=== PATIENT | male | born 1955 | race Caucasian/White ===

== ENCOUNTER → 2019-09-23 11:13 | Outpatient (CLI) | payer OTHER, SELFPAY ==
[2019-09-23 12:33] LABS: Blood Urea Nitrogen 18 mg/dL (9-20); Calcium 9.4 mg/dL (8.4-10.2); Carbon Dioxide 29 mmol/L (22-32); Chloride 104 mmol/L (98-107); Cholesterol 291 mg/dL (140-199); Estimated Glomerular Filt Rate > 60.0 mL/min (>60); Glucose 134 mg/dL (80-110); HDL Cholesterol 38 mg/dL (40-60); HEMOLYSIS < 15 (0-50); LDL Cholesterol Calculated 212 mg/dL (<100); Potassium 4.3 mmol/L (3.4-5.1); Sodium 141 mmol/L (137-145); Triglycerides 206 mg/dL (35-150)
[2019-09-23 13:05] LABS: Prostate Specific Antigen Scrn 3.04 ng/mL (0.1-4.0)
[2019-09-23 15:32] LABS: Vitamin D 25 Hydroxy (D3) 15.7 ng/mL (30.0-100.0)
== END ==
PROVIDERS: Visit Provider Student in an Organized Health Care Education/Training Program
DX: Z12.5 Encounter for screening for malignant neoplasm of prostate (principal); E78.2 Mixed hyperlipidemia; Z79.1 Long term (current) use of non-steroidal anti-inflammatories (NSAID); E55.9 Vitamin D deficiency, unspecified
CPT/HCPCS: 36415; 80048; 80061; 82306; G0103

== ENCOUNTER → 2020-04-26 13:45 | Outpatient (CLI) | payer OTHER, SELFPAY ==
[2020-04-26 15:59] LABS: Cholesterol 158 mg/dL (140-199); HDL Cholesterol 34 mg/dL (40-60); LDL Cholesterol Calculated 102 mg/dL (<100); Triglycerides 110 mg/dL (35-150)
[2020-04-26 16:18] LABS: Vitamin D 25 Hydroxy (D3) 33.2 ng/mL (30.0-100.0)
== END ==
PROVIDERS: PCP Student in an Organized Health Care Education/Training Program; Referring Provider Student in an Organized Health Care Education/Training Program; Visit Provider Student in an Organized Health Care Education/Training Program
DX: E78.49 Other hyperlipidemia (principal); E55.9 Vitamin D deficiency, unspecified
CPT/HCPCS: 36415; 80061; 82306

== ENCOUNTER → 2020-10-19 10:54 | Outpatient (CLI) | payer OTHER, SELFPAY ==
[2020-10-19 13:03] LABS: Prostate Specific Antigen Scrn 2.36 ng/mL (0.1-4.0)
== END ==
PROVIDERS: PCP Student in an Organized Health Care Education/Training Program; Referring Provider Student in an Organized Health Care Education/Training Program; Visit Provider Student in an Organized Health Care Education/Training Program
DX: Z12.5 Encounter for screening for malignant neoplasm of prostate (principal)
CPT/HCPCS: 36415; G0103

== ENCOUNTER → 2021-04-30 14:34 | Outpatient (CLI) | payer OTHER, SELFPAY ==
--- NOTE | 2021-04-30 14:35 | DI.RAD.S_ITS ---
PROCEDURE: XR KNEE LT 3V INDICATIONS: Knee pain TECHNIQUE: 3 views of the knee were acquired. COMPARISON: None. FINDINGS: Bones: No fractures or dislocations. No suspicious bony lesions. Mild tricompartment osteoarthritis. Soft tissues: No joint effusion. No suspicious soft tissue calcifications. IMPRESSION: Mild left knee tricompartmental osteoarthritis. Dictated by: Eva Ngo MD, PhD on 04/30/2021 at 17:00 Approved by: Eva Ngo MD, PhD on 04/30/2021 at 17:01
== END ==
PROVIDERS: PCP Student in an Organized Health Care Education/Training Program; Referring Provider Student in an Organized Health Care Education/Training Program; Visit Provider Student in an Organized Health Care Education/Training Program
DX: M25.562 Pain in left knee (principal); M17.12 Unilateral primary osteoarthritis, left knee
CPT/HCPCS: 73562

== ENCOUNTER → 2022-09-25 14:34 | Outpatient (CLI) | payer OTHER, SELFPAY ==
[2022-09-25 22:54] LABS: BUN Creatinine Ratio 12.9 (6-22); Blood Urea Nitrogen 13 mg/dL (9-20); Calcium 9.3 mg/dL (8.4-10.2); Carbon Dioxide 30 mmol/L (22-32); Chloride 102 mmol/L (98-107); Cholesterol 208 mg/dL (140-199); Estimated Glomerular Filt Rate > 60 mL/min (>60); Glucose 108 mg/dL (80-110); HDL Cholesterol 39 mg/dL (40-60); HEMOLYSIS < 15 (0-50); LDL Cholesterol Calculated 129 mg/dL (<100); Potassium 4.4 mmol/L (3.4-5.1); Sodium 140 mmol/L (137-145); Triglycerides 200 mg/dL (35-150)
[2022-09-25 23:23] LABS: Prostate Specific Antigen Scrn 2.99 ng/mL (0.1-4.0)
[2022-09-26 16:43] LABS: Hep C Virus Ab w/Reflex Quant NEGATIVE s/c (NEGATIVE)
== END ==
PROVIDERS: PCP Student in an Organized Health Care Education/Training Program; Referring Provider Student in an Organized Health Care Education/Training Program; Visit Provider Student in an Organized Health Care Education/Training Program
DX: I10 Essential (primary) hypertension (principal); Z12.5 Encounter for screening for malignant neoplasm of prostate; Z11.59 Encounter for screening for other viral diseases; E78.49 Other hyperlipidemia
CPT/HCPCS: 36415; 80048; 80061; 86803; G0103

== ENCOUNTER → 2023-01-14 11:16 | Outpatient (CLI) | payer OTHER, SELFPAY ==
[2023-01-14 12:30] LABS: Cholesterol 187 mg/dL (140-199); HDL Cholesterol 34 mg/dL (40-60); LDL Cholesterol Calculated 111 mg/dL (<100); Triglycerides 208 mg/dL (35-150); VLDL Cholesterol Calculated 42 mg/dL (2-30)
== END ==
PROVIDERS: PCP Student in an Organized Health Care Education/Training Program; Referring Provider Student in an Organized Health Care Education/Training Program; Visit Provider Student in an Organized Health Care Education/Training Program
DX: E78.49 Other hyperlipidemia (principal)
CPT/HCPCS: 36415; 80061

== ENCOUNTER 2023-07-22 10:44 | Day surgery (SDC) | payer OTHER, SELFPAY ==
--- NOTE | 2023-07-22 | PATH_ITS ---
[facility] Accession Number: [id number] No. of containers..03 Tissue . 01 Material submitted: . PART A: colon - SIGMOID PART B: colon - CECUM PART C: colon - TRANSVERSE . 01 Diagnosis: A- COLON, SIGMOID, BIOPSY: - CONSISTENT WITH TUBULAR ADENOMA. --- B- COLON, CECUM, BIOPSY: - CONSISTENT WITH TUBULOVILLOUS ADENOMA. --- C-COLON, TRANSVERSE, BIOPSY: - CONSISTENT WITH TUBULAR ADENOMA. TXN 07/25/2023 1021 Local . 01 Electronically signed: . Tawfeq MD Aaron, Pathologist NPI- [id number] . 01 Gross description: . Part A: SIGMOID: Received in formalin is 1 fragment(s) of vazquez, soft tissue measuring 0.3 x 0.2 x 0.1 cm submitted entirely in 1 cassette(s) Part B: CECUM: Received in formalin is multiple fragment(s) of vazquez, soft tissue measuring 1.5 x 0.5 x 0.3 cm in aggregate submitted entirely in 1 cassette(s) Part C: TRANSVERSE: Received in formalin is 1 fragment(s) of vazquez, soft tissue measuring 0.8 x 0.7 x 0.6 cm which is bisected and submitted entirely in 1 cassette(s) /AAY 07/24/2023 0252 Local . 01 Pathologist provided ICD-10: Z12.11 . 01 CPT . 171727, [id number], [id number] Specimen Comment: A courtesy copy of this report has been sent to [phone] Performed at: [facility] [address] [place] [address] [address] [facility] [place], [place], [place] [id number] MD Richard Toney MD Phone: [phone]
[2023-07-22 11:04] VITALS: BP 147/90; PULSE 87; RESP 16; TEMP 36.6; O2SAT 93; BMI 28.0
[2023-07-22] MEDS: LACTATED RINGERS 1,000 ML 150 ML IV (11:24)
--- NOTE | 2023-07-22 11:31 | PM.HP.1 ---
History of Present Illness History of Present Illness Date Patient Seen: 07/22/23 Time Patient Seen: 11:31 Chief complaint: Colonoscopy Narrative: 68-year-old man here for screening colonoscopy. Previously normal colonoscopy 18 years ago. No family history of intestinal malignancy in first-degree relatives. No abdominal concerns today including abdominal pain, unintentional weight loss, blood per rectum, anorexia. [facility] Medical History (Updated 05/30/23 @ 16:48 by Luis Cutler MD) Annual physical exam Cervical vertebral fusion Chicken pox Hordeolum Keratosis Measles Restless leg syndrome Tension headache Tinnitus Surgical History Anesthesia History of tonsillectomy (~1964) History of vasectomy (~1977) Spinal stenosis (~2015) Family History Father No problems noted. Mother Cancer Social History household members: spouse Smoking Status: Never smoker alcohol intake: current Meds Home Medications and Allergies Home Medications Medication Instructions Recorded Confirmed Type aspirin 81 mg tablet,delayed 81 mg PO DAILY 07/29/19 07/22/23 History release losartan 25 mg tablet 25 mg PO DAILY #90 tabs 09/25/22 07/22/23 Rx atorvastatin 20 mg tablet 80 mg PO BEDTIME #360 tabs 09/27/22 07/22/23 Rx sildenafil (pulm.hypertension) 20 20 mg PO ONCE #20 tabs 06/01/23 07/22/23 Rx mg tablet Allergies Allergy/AdvReac Type Severity Reaction Status Date / Time hydrocodone Allergy itchiness Verified 07/22/23 11:00 Exam Vital Signs (past 8 hours): - 07/22/23 11:04 Temperature 97.9 F Pulse Rate 87 Respiratory Rate 16 Blood Pressure 147/90 H Pulse Oximetry 93 Oxygen Delivery Method Room Air Oxygen Delivery Method Room Air Narrative Exam Narrative: General adult man alert oriented no acute distress Abdomen soft nontender nondistended Assessment & Plan Assessment & Plan narrative: The patient requires colorectal screening and colonoscopy is recommended. Technical details were discussed. Risks, benefits, alternatives explained. Risks including but not limited to myocardial infarction, aspiration, bleeding, pain, missed lesion, incomplete examination, need for further radiographic studies, colonic perforation, and need for major abdominal surgery were discussed. All questions were answered to their satisfaction, and they are in agreement with this plan.
--- NOTE | 2023-07-22 11:33 | PM.OP.COLON ---
Operative Date/Time/Diagnoses Date of procedure: 07/22/23 Time of procedure: 11:33 Pre-op diagnosis: Colorectal screening Post-op diagnosis: other (Colonic polyps x3) Procedure & Clinicians Study performed: Colonoscopy Same procedure as scheduled: Yes Indications: Colorectal screening Surgeon: Ravinder Martinez Procedure Notes Procedure in detail: The history and physical was performed/updated and the patient is ASA class is 2. The procedure was discussed in detail with the patient. Potential risks complications including infection, bleeding, missed diagnosis, perforation, need for surgery, and were explained. Their questions were answered and informed consent was obtained. Patient was brought to the procedure room and placed standard monitoring equipment. The patient's vital signs were monitored continuously throughout the entire procedure. Prior to starting time-out was performed. The patient was placed in the left lateral recumbent position. Procedural sedation was administered by anesthesia. Examination began with a thorough inspection of the perianal area there was no evidence of fissures, fistulae, external hemorrhoids or cutaneous malignancy. The colonoscopy scope was then placed into the anal canal and was advanced to the cecum, which was identified by the ileocecal valve, the appendiceal orifice and the confluence of the taenia. The scope was then slowly withdrawn examining colon thoroughly in all directions, irrigating it of any residual stool. Cecum-8 mm polyp removed with with cold snare Transverse-8 mm polyp removed with cold snare Sigmoid-3 mm polyp removed with Jumbo forceps The patient tolerated the procedure well. They will be discharged once criteria are met. The prep was of good/excellent quality. The withdrawl time was 8 minutes. Specimen(s): other (Sigmoid, transfers, cecal polyps) Impression: Colonic polyps x3 Post-procedure Plan for aftercare: Follow-up is dependent on pathology findings likely 3-5 years Disposition: same day surgery
[2023-07-22 11:54] VITALS: BP 170/87; PULSE 71; RESP 15; TEMP 36.4; O2SAT 93
[2023-07-22 11:59] VITALS: BP 150/88; PULSE 65; RESP 12; O2SAT 94
[2023-07-22 12:15] VITALS: BP 145/93; PULSE 69; RESP 15; TEMP 36.6; O2SAT 94
== END 2023-07-22 12:33 | disposition home or self-care (01) ==
PROVIDERS: PCP Pediatrics; Referring Provider Surgery; Visit Provider Surgery
PROC: 0DJD8ZZ Inspection of Lower Intestinal Tract, Via Natural or Artificial Opening Endoscopic (ICD-10-PCS; CPT 45378; principal; 2023-07-22 11:45)
DX: Z12.11 Encounter for screening for malignant neoplasm of colon (principal); K63.5 Polyp of colon
CPT/HCPCS: 45385; 45380; J2704

== ENCOUNTER → 2024-01-02 10:54 | Outpatient (CLI) | payer OTHER, SELFPAY ==
[2024-01-02 12:51] LABS: Add Manual Diff / Slide Review NO; Basophils Absolute Auto 0 /uL (0-100); Basophils Percent Auto 0.5 % (0-2); Eosinophils Absolute Auto 500 /uL (0-450); Eosinophils Percent Auto 4.7 % (2-4); Hematocrit 44.7 % (41-53); Hemoglobin 15.1 g/dL (13.5-17.5); Lymphocytes Absolute Auto 2900 /uL (1100-4500); Lymphocytes Percent Auto 29.6 % (25-40); Mean Corpuscular HGB Conc 33.8 % (30-36); Mean Corpuscular Hemoglobin 31.6 PG (26-34); Mean Corpuscular Volume 93.6 fL (80-100); Monocytes Absolute Auto 900 /uL (0-900); Monocytes Percent Auto 9.2 % (3-14); Neutrophils Absolute Auto 5500 /uL (1500-7000); Platelet Count 257 X10^3/uL (150-400); Red Blood Cell Count 4.77 X10^6/uL (4.5-5.9); Red Cell Distribution Width 13.9 % (11.6-14.8); White Blood Cell Count 9.8 X10^3/uL (4.5-11.0)
[2024-01-02 13:31] LABS: Alanine Aminotransferase 29 IU/L (<50); Albumin 3.7 g/dL (3.5-5.0); Albumin Globulin Ratio 1.4 (1.0-2.8); Alkaline Phosphatase 78 U/L (38-126); Aspartate Aminotransferase 21 IU/L (17-59); BUN Creatinine Ratio 13.4 (6-22); Bilirubin Total 0.4 mg/dL (0.2-1.3); Blood Urea Nitrogen 15 mg/dL (9-20); Calcium 9.1 mg/dL (8.4-10.2); Carbon Dioxide 32 mmol/L (22-32); Chloride 105 mmol/L (98-107); Estimated Glomerular Filt Rate > 60 mL/min (>60); Globulin 2.6 g/dL (1.7-4.1); Glucose 133 mg/dL (80-110); HEMOLYSIS < 15 (0-50); Potassium 5.1 mmol/L (3.4-5.1); Sodium 141 mmol/L (137-145); Total Protein 6.3 g/dL (6.3-8.2)
[2024-01-02 13:33] LABS: Cholesterol 166 mg/dL (140-199); HDL Cholesterol 37 mg/dL (40-60); LDL Cholesterol Calculated 106 mg/dL (<100); Triglycerides 117 mg/dL (35-150)
[2024-01-05 15:38] LABS: Appearance Urine UA CLEAR; Bilirubin Urine UA NEGATIVE (NEGATIVE); Color Urine UA YELLOW; Glucose Urine UA NEGATIVE (Negative); Ketones Urine UA NEGATIVE (NEGATIVE); Leukocyte Esterase Urine UA TRACE (NEGATIVE); Nitrite Urine UA NEGATIVE (Negative); Occult Blood Urine UA NEGATIVE (Negative); Protein Urine UA NEGATIVE (Negative); Specific Gravity Urine UA 1.015 (1.000-1.035); Urobilinogen Urine UA 0.2 E.U./dL (0.2)
[2024-01-05 15:44] LABS: Bacteria Urine Occasional (0-1); Culture Indicated Urine Specimen Cultured; RBC Urine 0-1/HPF (0-5/HPF); Squamous Epithelial Cell Urine 1-5 /HPF (0-5/HPF); Urine Volume 10mL (spun); WBC Urine 1-5/HPF (0-5/HPF)
== END ==
PROVIDERS: PCP Family Medicine; Referring Provider Pediatrics; Visit Provider Pediatrics
DX: E78.49 Other hyperlipidemia (principal); G62.9 Polyneuropathy, unspecified; Z00.00 Encounter for general adult medical examination without abnormal findings; L57.0 Actinic keratosis; G25.81 Restless legs syndrome; I10 Essential (primary) hypertension; Z79.899 Other long term (current) drug therapy; R10.9 Unspecified abdominal pain
CPT/HCPCS: 36415; 80053; 80061; 81001; 85025; 87086

== ENCOUNTER → 2024-01-16 11:41 | Outpatient (CLI) | payer OTHER, SELFPAY ==
--- NOTE | 2024-01-16 11:42 | DI.CT.S_ITS ---
PROCEDURE: CT KIDNEY URETER BLADDER (KUB) INDICATIONS: Kidney Stone; Right Flank Pain TECHNIQUE: Axial sections were acquired from the lung bases to the pubic symphysis. Coronal and sagittal reformats were performed. For radiation dose reduction, the following was used: automated exposure control, adjustment of mA and/or kV according to patient size. COMPARISON: None. FINDINGS: Image quality: Diagnostic. Lower Chest: Possible thickening at the lower esophagus. URINARY: Right Kidney: No stones or hydronephrosis. Right Ureter: No hydroureter. Left Kidney: No stones or hydronephrosis. Left Ureter: No hydroureter. Bladder: Normal wall thickness. No stones. ABDOMEN: Liver: No contour-deforming solid mass. Gallbladder: No radiopaque gallstones or wall thickening. Biliary ducts: No biliary dilation. Pancreas: No ductal dilation. Spleen: Size is within normal limits. Adrenal Glands: No adrenal nodules. Stomach and Bowel: Normal colonic caliber, without significant wall thickening. Normal appendix. Peritoneum: No abnormal intraperitoneal fluid. No free air. Ventral Wall: No hernia. Abdominal Nodes: No enlarged retroperitoneal or mesenteric lymph nodes. Vessels: Aorta and inferior vena cava are normal in size. Circumaortic left renal vein. PELVIS: Pelvic Organs: Prostatomegaly. Pelvic Nodes: Unremarkable. Miscellaneous: No inguinal hernias are seen. Bones: A few sclerotic foci which have the appearance of bone islands. No aggressive appearing lesion. IMPRESSION: 1. No kidney stones. No hydronephrosis. 2. Possible thickening at the lower esophagus. Recommend clinical correlation. If indicated this could be further evaluated with endoscopy. 3. Prostatomegaly. Dictated by: Toby Vazquez M.D. on 01/16/2024 at 16:12 Approved by: Toby Vazquez M.D. on 01/16/2024 at 16:20
== END ==
PROVIDERS: PCP Family Medicine; Referring Provider Family Medicine; Visit Provider Family Medicine
DX: N40.0 Benign prostatic hyperplasia without lower urinary tract symptoms (principal); R10.9 Unspecified abdominal pain
CPT/HCPCS: 74176

== ENCOUNTER → 2024-01-23 09:15 | Outpatient (CLI) | payer OTHER, SELFPAY ==
[2024-01-23 11:05] LABS: Prostate Specific Antigen Scrn 3.55 ng/mL (0.1-4.0)
[2024-01-23 13:06] LABS: Appearance Urine UA CLEAR; Bilirubin Urine UA NEGATIVE (NEGATIVE); Color Urine UA YELLOW; Glucose Urine UA NEGATIVE (Negative); Ketones Urine UA NEGATIVE (NEGATIVE); Leukocyte Esterase Urine UA TRACE (NEGATIVE); Nitrite Urine UA NEGATIVE (Negative); Occult Blood Urine UA TRACE-INTACT (Negative); Protein Urine UA NEGATIVE (Negative); Specific Gravity Urine UA 1.025 (1.000-1.035); Urobilinogen Urine UA 0.2 E.U./dL (0.2); pH Urine UA 5.5 (4.5-8.0)
[2024-01-23 13:16] LABS: Urine Volume 10mL (spun)
[2024-01-23 13:17] LABS: Bacteria Urine None Seen; Culture Indicated Urine Specimen Cultured; RBC Urine None Seen (0-5/HPF); Squamous Epithelial Cell Urine 0-1 /HPF (0-5/HPF); WBC Urine 1-5/HPF (0-5/HPF)
== END ==
PROVIDERS: PCP Family Medicine; Referring Provider Family Medicine; Visit Provider Family Medicine
DX: Z12.5 Encounter for screening for malignant neoplasm of prostate (principal); N40.0 Benign prostatic hyperplasia without lower urinary tract symptoms; R82.90 Unspecified abnormal findings in urine
CPT/HCPCS: 36415; 81001; 87086; G0103

== ENCOUNTER → 2025-03-15 11:14 | Outpatient (CLI) | payer OTHER, SELFPAY ==
[2025-03-15 12:57] LABS: Add Manual Diff / Slide Review NO; Basophils Absolute Auto 0 /uL (0-100); Basophils Percent Auto 0.4 % (0-2); Eosinophils Absolute Auto 500 /uL (0-450); Eosinophils Percent Auto 5.8 % (2-4); Hematocrit 45.7 % (41-53); Hemoglobin 15.2 g/dL (13.5-17.5); Lymphocytes Absolute Auto 3000 /uL (1100-4500); Lymphocytes Percent Auto 32.5 % (25-40); Mean Corpuscular HGB Conc 33.3 % (30-36); Mean Corpuscular Hemoglobin 31.7 PG (26-34); Mean Corpuscular Volume 95.3 fL (80-100); Monocytes Absolute Auto 700 /uL (0-900); Monocytes Percent Auto 7.7 % (3-14); Neutrophils Absolute Auto 5000 /uL (1500-7000); Neutrophils Percent Auto 53.6 % (50-75); Platelet Count 247 X10^3/uL (150-400); Red Cell Distribution Width 13.7 % (11.6-14.8); White Blood Cell Count 9.4 X10^3/uL (4.5-11.0)
[2025-03-15 13:04] LABS: Alanine Aminotransferase 28 IU/L (<50); Albumin 4.3 g/dL (3.5-5.0); Albumin Globulin Ratio 1.9 (1.0-2.8); Alkaline Phosphatase 89 U/L (38-126); Aspartate Aminotransferase 23 IU/L (17-59); BUN Creatinine Ratio 13.1 (6-22); Bilirubin Total 0.7 mg/dL (0.2-1.3); Blood Urea Nitrogen 14 mg/dL (9-20); Calcium 9.4 mg/dL (8.4-10.2); Carbon Dioxide 27 mmol/L (22-32); Chloride 105 mmol/L (98-107); Estimated Glomerular Filt Rate > 60 mL/min (>60); Globulin 2.3 g/dL (1.7-4.1); Glucose 130 mg/dL (70-99); HEMOLYSIS < 15 (0-50); Potassium 4.2 mmol/L (3.4-5.1); Sodium 141 mmol/L (137-145); Total Protein 6.6 g/dL (6.3-8.2)
== END ==
PROVIDERS: PCP Family Medicine; Referring Provider Family Medicine; Visit Provider Family Medicine
DX: Z01.818 Encounter for other preprocedural examination (principal); I10 Essential (primary) hypertension; Z76.89 Persons encountering health services in other specified circumstances
CPT/HCPCS: 36415; 80053; 85025

== ENCOUNTER → 2025-07-22 11:02 | Outpatient (CLI) | payer OTHER, SELFPAY ==
--- NOTE | 2025-07-22 11:05 | DI.RAD.S_ITS ---
PROCEDURE: XR LUMBAR SPINE 2-3V INDICATIONS: low back pain TECHNIQUE: 3 views of the lumbar spine were acquired. COMPARISON: None. FINDINGS: Bones: Multilevel degenerative disc disease is, most pronounced at L5-S1 and L1-L2. No vertebral body height loss or fracture. Mild levocurvature. Soft tissues: Overlying bowel gas pattern is normal. No suspicious soft tissue calcifications. IMPRESSION: Degenerative disc disease Dictated by: Floyd Shipley M.D. on 07/22/2025 at 14:33 Approved by: Floyd Shipley M.D. on 07/22/2025 at 14:34
== END ==
PROVIDERS: PCP Family Medicine; Referring Provider Family Medicine; Visit Provider Family Medicine
DX: M51.360 Other intervertebral disc degeneration, lumbar region with discogenic back pain only (principal); M51.370 Other intervertebral disc degeneration, lumbosacral region with discogenic back pain only; G89.29 Other chronic pain
CPT/HCPCS: 72100

== ENCOUNTER → 2025-09-09 13:09 | Outpatient (CLI) | payer OTHER, SELFPAY ==
[2025-09-09 13:54] LABS: Hemoglobin A1C% w Est Avg Glu 7.5 % (4.0-6.0)
== END ==
PROVIDERS: PCP Family Medicine; Referring Provider Family Medicine; Visit Provider Family Medicine
DX: R73.01 Impaired fasting glucose (principal); Z12.5 Encounter for screening for malignant neoplasm of prostate; Z68.29 Body mass index [BMI] 29.0-29.9, adult
CPT/HCPCS: 36415; 83036; G0103